=== PATIENT | male | born 1995 ===

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

== ENCOUNTER 2017-03-29 06:39 | Emergency (ER) | payer OTHER ==
[2017-03-29 06:39] VITALS: BMI 30.4
== END 2017-03-29 16:41 ==
LOC: H.ER 06:39
DX: F25.0 Schizoaffective disorder, bipolar type (principal); Z91.14 Patient's other noncompliance with medication regimen; F17.210 Nicotine dependence, cigarettes, uncomplicated

== ENCOUNTER 2017-09-20 09:26 | Inpatient (IN) | payer OTHER ==
[2017-09-20 10:11] LABS: BASO # 0.1 K/uL (0.0-0.2); BASO % 0.5 % (0.0-2.0); EOS # 0.2 K/uL (0.0-0.7); EOS % 1.1 % (0.0-4.0); HEMOGLOBIN 12.9 g/dL (12.0-18.0); LYMPH # 2.1 K/uL (1.0-4.3); MEAN CELL VOLUME 73.9 fl (80.0-94.0); MEAN CORPUSCULAR HGB CONC 33.8 g/dL (33.0-37.0); MEAN PLATELET VOLUME 8.1 fl (7.2-11.7); MONO # 0.8 K/uL (0.0-0.8); MONO % 5.6 % (0.0-10.0); NEUT # 10.8 K/uL (1.8-7.0); NEUT % 77.8 % (50.0-75.0); RBC 5.17 Mil/uL (4.40-5.90); WHITE BLOOD COUNT 13.8 K/uL (4.8-10.8)
[2017-09-20 10:21] LABS: ALBUMIN 4.1 g/dL (3.5-5.0); ALT/SGPT 39 U/L (21-72); AST/SGOT 23 U/L (17-59); BLOOD UREA NITROGEN 12 mg/dl (9-20); CALCIUM 9.3 mg/dL (8.4-10.2); GFR AFRICAN-AMERICAN > 60; GFR NON-AFRICAN AMERICAN > 60
--- NOTE | 2017-09-20 10:39 | ED PDOC ---
HPI: Psych/Substance Abuse Time Seen by Provider: 09/20/17 09:30 Chief Complaint (Nursing): Psychiatric Evaluation Chief Complaint (Provider): crisis evaluation ED Caveat: Psychotic History Per: Patient, Family History/Exam Limitations: clinical condition Onset/Duration Of Symptoms: Gradual Current Symptoms Are (Timing): Still Present Suicide/Self Injury Attempted (Context): None Modifying Factor(s): None Severity: Severe Associated Symptoms: Agitation, Paranoia Involuntary Hold By: Emergency Physician Additional History Per: Prior Records Additional Complaint(s): 22yo male hx bipolar arrives w/ EMS/police grandmother called when patient has been speaking to himself, not sleeping, not taking his meds. Patient is internally preoccupied and not offering much other history. States "I feel alright but the devil speaks from my mouth" Past Medical History Reviewed: Historical Data, Nursing Documentation, Vital Signs Vital Signs: Last Vital Signs Temp 97 F L 09/20/17 09:31 Pulse 122 H 09/20/17 09:31 Resp 18 09/20/17 09:31 BP 156/97 H 09/20/17 09:31 Pulse Ox 100 09/20/17 09:31 - Medical History PMH: Anxiety, Depression Denies: Diabetes, Hepatitis, HIV, HTN, Chronic Kidney Disease, Seizures, Sexually Transmitted Disease - Family History Family History: States: Unknown Family Hx - Living Arrangements Living Arrangements: With Family - Social History Current smoker - smoking cessation education provided: No - Immunization History Hx Tetanus Toxoid Vaccination: No Hx Influenza Vaccination: No Hx Pneumococcal Vaccination: No - Home Medications Home Medications: Ambulatory Orders Medication Instructions Recorded Divalproex [Sd LESLIE(*BID*)] 750 mg PO BID 30 Days #180 tcp 04/06/17 Zolpidem [Ambien] 10 mg PO HS 09/20/17 - Allergies Allergies/Adverse Reactions: Allergies Allergy/AdvReac Type Severity Reaction Status Date / Time aspirin Allergy SWELLING Verified 09/20/17 09:31 ibuprofen [From Motrin] Allergy SWELLING Verified 09/20/17 09:31 Review of Systems Review Of Systems: ROS cannot be obtained secondary to pt's inabilty to answer questions. (limited due to clinical condition) Constitutional: Negative for: Fever, Chills Cardiovascular: Negative for: Chest Pain, Palpitations Gastrointestinal: Negative for: Vomiting Skin: Negative for: Rash, Lesions Neurological: Negative for: Weakness Psych: Positive for: Psychosis Physical Exam - Reviewed Nursing Documentation Reviewed: Yes Vital Signs Reviewed: Yes - Physical Exam Appears: Positive for: Non-toxic (poor eye contact pressured speech, tangential) , No Acute Distress Head Exam: Positive for: ATRAUMATIC, NORMAL INSPECTION, NORMOCEPHALIC Skin: Positive for: Normal Color, Warm, DRY Eye Exam: Positive for: EOMI, Normal appearance, PERRL ENT: Positive for: Normal ENT Inspection Neck: Positive for: Normal, Painless ROM Cardiovascular/Chest: Positive for: Regular Rate, Rhythm Respiratory: Positive for: CNT, Normal Breath Sounds Gastrointestinal/Abdominal: Positive for: Normal Exam, Bowel Sounds, Soft Back: Positive for: Normal Inspection Extremity: Positive for: Normal ROM Neurologic/Psych: Positive for: Alert, Oriented, Mood/Affect (labile, poor insight). Negative for: Motor/Sensory Deficits, Facial Droop - Laboratory Results Result Diagrams: 09/20/17 10:01 09/20/17 10:01 - ECG ECG: Positive for: Interpreted By Me ECG Rhythm: Positive for: Normal QRS, Sinus Rhythm, Nonspecific Changes Interpretation Of ECG: R axis Rate: 94 O2 Sat by Pulse Oximetry: 100 Pulse Ox Interpretation: Normal Medical Decision Making Medical Decision Making: workup for acute psychiatric condition initiated tachycardic in triage but HR improved vehicle delivery worker at bedside 1030a Ativan 1mg IM ordered for anxiolysis and relief of mild agitation EKG obtained 1:1 maintained labs reviewed medically stable for psychiatric admission at time of eval pt requested home medications be given. Disposition - Clinical Impression Clinical Impression: Schizoaffective disorder, bipolar type - Patient ED Disposition Is Patient to be Admitted: Yes - Disposition Disposition Time: 11:01 Condition: STABLE - Pt Status Changed To: Hospital Disposition Of: Inpatient - Admit Certification Admit to Inpatient:: After my assessment, the patient will require hospitalization for at least two midnights. This is because of the severity of symptoms shown, intensity of services needed, and/or the medical risk in this patient being treated as an outpatient. - POA Present On Arrival: None
[2017-09-20 12:39] VITALS: BMI 26.6
--- NOTE | 2017-09-20 12:46 | RAD ---
HISTORY: Evaluate for infiltrate COMPARISON: 03/29/2027. FINDINGS: LUNGS: The lungs are well inflated and clear. PLEURA: No significant pleural effusion identified, no pneumothorax apparent. CARDIOVASCULAR: Normal. OSSEOUS STRUCTURES: No significant abnormalities. VISUALIZED UPPER ABDOMEN: Normal. OTHER FINDINGS: None. IMPRESSION: No active pulmonary disease.
[2017-09-20] MEDS ORDERED: Alum-Mag Hydrox-Simethicone Susp (30 mL) PO PRN (13:45)
[2017-09-20] MEDS ORDERED: Magnesium Hydroxide Susp 30 ml UD PO PRN (13:45)
[2017-09-20] MEDS ORDERED: DiphenhydrAMINE 50 mg/ml Inj IM PRN (13:45)
--- NOTE | 2017-09-20 15:10 | PCM.BM ---
<Zuri Cooney - Last Filed: 09/20/17 15:18> Treatment Plan Problems - Problems identified on initial assessmt Medication nonadherence Date Initiated: 09/20/17 Time Initiated: 15:18 Assessment reference: NA Status: Active Treatment assets and liabiliti Patient Assests: self-reliant, ADL independent, physically healthy, good support system, good past tx response Patient Liabilities: financial problems, relationship conflicts - Milieu Protocol Maintain good personal hygiene: daily Encourage regular showers, daily Remind patient to perform daily oral care, daily Assist patient to perform ADL's Conduct patient checks and document Observation sheet: Q15 minutes Maintain personal safety: every shift Educate patient to report safety concerns to staff, every shift Monitor environment for contraband/sharps Medication safety: Monitor for expected outcome, potential side effects: every shift, Assess barriers to learning: every shift, Assess readiness for medication education: every shift <Aurelio Odom - Last Filed: 09/21/17 11:48> Family Contact Family involvement: Family/SO is involved Family contact: Patient declines to allow family contact at present Family contact name: Miesha Tinoco (grandmother/POA [phone]) Family contacted how many times per week?: 3 - Goals for Treatment Patient goals for treatment: Pt offered no goals. Pt fixated on discharge. Discharge/Continuing Care - Education Needs Education Needs: Family Medication, Family Diagnosis/Disease Process, Family Coping Skills, Family Anger Management skills, Family Personal Hygiene/Grooming , Family Aftercare Safety Plan, Patient Medication, Patient Diagnosis/Disease Process, Patient Coping Skills, Patient Anger Management skills, Patient Personal Hygiene/Grooming, Patient Aftercare Safety Plan - Discharge Discharge Criteria: Tolerates medication w/o severe side effects, Free of paranoid thoughts, Free of agitation, Normal sleep pattern, Ability to care for self, Reduction of target symptoms Discharge to:: Home, With Family - Additional Comments 09/21/17 11:50 Pt reported he was tired and wanted to leave the hospital as soon as possible. Pt denied noncompliance with medication, yet appeared internally preoccupied. - Treatment Team Participation Discussed with Family/SO: No Was Patient/Family/SO present at Treatment Team Meeting: Yes <Noemi Dodson - Last Filed: 09/26/17 13:25> - Diagnosis (1) Psychosis Status: Acute Interventions: pharmacotherapy, psychotherapy 04/02/18 14:28 <Tricia Sarkar - Last Filed: 09/28/17 16:17> Treatment assets and liabiliti Patient Assests: cooperative, ADL independent, physically healthy, good support system, negotiates basic needs, cognitively intact (limited) Patient Liabilities: other (poor insight into illness and need for tx) Family Contact Family involvement: Family/SO is involved Family contact: Family has been contacted by patient, Telephone contact initiated by staff Family contact comment: Certified Bench Jeweler Technician placed call to pts grandmother/POA (Miesha [phone]) to discuss results of [facility] screening and pts progress on 3NP. Voicemail is full at this time. Certified Bench Jeweler Technician unable to leave voicemail. Certified Bench Jeweler Technician will attempt call at later time. - Outside Agency Agency 2 Care involvment: Other Agency contact name: [facility] Agency contact number: [phone] - Goals for Treatment Patient goals for treatment: Patient to continue stabilization on 3NP through medication management and group/supportive therapy. Patient to be encouraged to attend groups regularly to promote self-awareness,compliance, reality testing and improve insight, coping skills and self-esteem. Patient to be provided with referral for appropriate level of aftercare to reduce risk of future hospitalizations and ensure safety in the community. Discharge/Continuing Care - Treatment Team Participation Patient/Family/SO Statement: 09/28/17 16:16 Pt brought into tx team this morning and was able to better engage in discussion regarding progress on 3NP. Pt. reports improvement in mood since admission but was unable to elaborate. Pt. remains internally preoccupied but to a lesser degree than upon admission and is observed responding to internal stimuli less in recent days. Pt. has shown decrease in paranoia since admission. Pt. more easily engaged and is more consistently compliant with medication. Pt. remains discharge focused and ambivalent regarding aftercare but is more receptive to feedback. No harmful behaviors noted. Discussed with Family/SO: No Was Patient/Family/SO present at Treatment Team Meeting: Yes
--- NOTE | 2017-09-20 15:19 | PCM.PSYCH ---
Initial Psychiatric Evaluation - Initial Psychiatric Evaluation Type of Admission: Voluntary Legal Status: Capacity Chief Complaint (in patient's own words): I do not know why I am here Patient's Reaction to Hospitalization: pt signed in by ROZ History of Present Illness and Precipitating Events: PT with history of schizoaffective disorder, non compliant with medications or follow up, reportedaly became increasingly disorganized, poor sleep, pacing all night , irritable, verbally abusive towards grand mother, observed internally preoccupied, talking to self, was brought to ER by grandmother pt presenting with angry irritable affect disorganized thought process observed responding to internal stimuli, not attending to personal hygiene denied suicidal or homicidal ideations, denied command hallucinations Current Medications: Active Medications Generic Name Dose Route Start Last Admin Trade Name Freq PRN Reason Stop Dose Admin Acetaminophen 650 mg 09/20/17 13:45 Tylenol 325mg Tab PO Q4 PRN Pain, moderate (4-7) Al Hydrox/Mg Hydrox/Simethicone 30 ml 09/20/17 13:45 Maalox Plus 30 Ml PO Q4 PRN Dyspepsia Benztropine Mesylate 0.5 mg 09/20/17 22:00 Cogentin PO HS SARAVANAN Diphenhydramine HCl 50 mg 09/20/17 13:45 Benadryl IM Q6 PRN Extrapyramidal S/S Unable PO Diphenhydramine HCl 50 mg 09/20/17 13:45 09/20/17 14:23 Benadryl PO 50 mg Q6 PRN Administration Extrapyramidal Symptoms Divalproex Sodium 500 mg 09/20/17 17:00 Sd Bains(*Bid*) PO BID SARAVANAN Haloperidol 5 mg 09/20/17 13:45 09/20/17 14:23 Haldol PO 5 mg Q4 PRN Administration Agitation Haloperidol Lactate 5 mg 09/20/17 13:45 Haldol IM Q4 PRN Agitation, Unable to Take PO Lorazepam 2 mg 09/20/17 13:45 Ativan IM Q4 PRN Anxiety/Agitation,Unable PO Lorazepam 2 mg 09/20/17 13:45 09/20/17 14:23 Ativan PO 2 mg Q4 PRN Administration Anxiety/Agitation Magnesium Hydroxide 30 ml 09/20/17 13:45 Milk Of Magnesia PO HS PRN Constipation Risperidone 2 mg 09/20/17 22:00 Risperdal M-Tab PO HS [facility] Risperidone 2 mg 09/21/17 09:00 Risperdal M-Tab PO DAILY SARAVANAN Past Psychiatric History - Past Psychiatric History Explanation of prior treatment: multiple inpatient hospitalizations hx of non compliance History of ETOH/Drug Use: hx of cannabis use Pertinent Medical Hx (Current Medical&Sleep Prob, Allergies): Allergies Allergy/AdvReac Type Severity Reaction Status Date / Time aspirin Allergy SWELLING Verified 09/20/17 09:31 ibuprofen [From Motrin] Allergy SWELLING Verified 09/20/17 09:31 Divalproex [Depakote DR(*BID*)] 750 mg PO BID 30 Days #180 tcp 04/06/17 Zolpidem [Ambien] 10 mg PO HS 09/20/17 Mental Status Examination - Personal Presentation Personal Presentation: Looks stated age Additional comments: unkempt un cooperative - Affect Affect: Constricted - Motor Activity Motor Activity: Psychomotor Agitation - Reliability in Providing Information Reliability in Providing Information: Poor, due to alteration in thoughts, Poor , due to altered mood - Speech Speech: Disorganized, Irrelevant - Mood Mood: Anxious - Formal Thought Process Formal Thought Process: Hallucinations, Delusions, Paranoia, Loosening of associations - Hallucinations/Delusions Additional comments: pt internally preoccupied, denied command hallucinatios - Obsessions/Compulsions Obsessions: No Compulsions: No - Cognitive Functions Orientation: Person Attention/Concentration: Easily distracted Judgement: Imparied, as evidence by: Poor judgement, Imparied, as evidence by: Lack of insight into illness - Risk Risk: Diminished functioning - Strength & Assets Inventory Strength & Assets Inventory: Family support - Limitations Additional comments: poor compliance DSM 5 DX - DSM 5 DSM 5 Diagnosis: schizoaffective disorder bipolar - Recommended/Plan of Treatment Treatment Recommendations and Plan of Treatment: depakote 500mg bid risperdal 2mg bid monitor for psychopharmacological effects and side effect profile
--- NOTE | 2017-09-20 18:28 | CARD ---
APPROVED REPORT EKG Measurement Heart [id number] <Conclusion> Normal sinus rhythm Rightward axis Borderline ECG
[2017-09-20] MEDS: Risperidone M TAB 2 MG PO SCH (21:22)
[2017-09-20] MEDS: Divalproex 500 mg DR(BID formulation) PO SCH (21:22)
[2017-09-21] MEDS: Divalproex 500 mg DR(BID formulation) PO SCH ×2 (10:11→18:34)
[2017-09-21] MEDS: Risperidone M TAB 2 MG PO SCH ×2 (10:11→21:19)
--- NOTE | 2017-09-21 14:41 | PCM.PYCHPN ---
Psychiatric Progress Note - Psychiatric Progress Note Patient seen today, length of contact: PT EVALUATED DISCUSSED WITH TEAM CHART REVIEWED Patient Chief Complaint: I need to go home Problems Identified/Issues Discussed: pt evaluated with treatment team, disheveled , unkempt, irritable, angry mood and affect, requesting to be discharged, pt internally preoccupied, responding to internal stimuli, verbally abusive towards other pts and presenting with persecutory delusions towards grandmother and staff members, limited insight into illness pt denied command hallucinations, denied suicidal or homicidal ideations Medical Problems: multiple inpatient hospitalizations hx of non compliance DSM 5 Symptoms Update: schizoaffective disorder bipolar Medication Change: No Medical Record Reviewed: Yes Mental Status Examination - Cognitive Function Orientation: Person Attention: Poor Concentration: Poor Association: Loose Fund of Knowledge: Poor Decription of patient's judgement and insights: impaired insight , poor judgment - Mood Mood: Anxious - Affect Affect: Constricted - Speech Speech: Loud - Formal Thought Process Formal Thought Process: Hallucinations, Delusions, Paranoia, Loosening of associations Psychotic Thoughts and Behaviors: pt internally preoccupied , denied command halluciantions - Suicidal Ideation Suicidal Ideation: No - Homicidal Ideation Homicidal Ideation: No Goal/Treatment Plan - Goal/Treatment Plan Need for Continued Stay: Remain at risks for inpatient hospitalization, Discharge may exacerbated symptoms, Severe functional impairment Progress Toward Problem(s) and Goals/Treatment Plan: depakote 500mg bid risperdal 2mg bid with plan to uptitrate monitor for psychopharmacological effects and side effect profile
[2017-09-22] MEDS: Risperidone M TAB 2 MG PO SCH ×2 (17:32→21:24)
[2017-09-22] MEDS: Divalproex 500 mg DR(BID formulation) PO SCH (17:32)
--- NOTE | 2017-09-22 19:51 | PCM.PYCHPN ---
Psychiatric Progress Note - Psychiatric Progress Note Patient seen today, length of contact: PT EVALUATED DISCUSSED WITH TEAM CHART REVIEWED Patient Chief Complaint: grandmother called ems because she was trying to tell me what to do Problems Identified/Issues Discussed: alteration in mood alteration in cognition alteration in coping Medical Problems: per chart Diagnostic Results: per psychiatry per medicine per nursing per social work DSM 5 Symptoms Update: somewhat less labile Medication Change: No Medical Record Reviewed: Yes Consults ordered or reviewed: hosptialist following pt Mental Status Examination - Cognitive Function Orientation: Person Attention: Poor Concentration: Poor Association: Loose Fund of Knowledge: Poor Decription of patient's judgement and insights: poor - Mood Mood: Anxious - Affect Affect: Constricted - Speech Speech: Loud - Formal Thought Process Formal Thought Process: Hallucinations, Delusions, Paranoia, Loosening of associations - Suicidal Ideation Suicidal Ideation: No - Homicidal Ideation Homicidal Ideation: No Goal/Treatment Plan - Goal/Treatment Plan Need for Continued Stay: Remain at risks for inpatient hospitalization, Discharge may exacerbated symptoms, Severe functional impairment Progress Toward Problem(s) and Goals/Treatment Plan: inpt milieu vital signs and clinical observation per protocol and per status adjust meds per status discharge plan planning in progress Estimated Date of D/C: 09/27/17 - Smoking Cessation Smoking Cessation Initiated: No Reason for not providing: defers
[2017-09-23] MEDS: Divalproex 500 mg DR(BID formulation) PO SCH ×2 (11:29→21:08)
[2017-09-23] MEDS: Risperidone M TAB 2 MG PO SCH ×2 (11:29→21:08)
--- NOTE | 2017-09-23 17:12 | PCM.PYCHPN ---
Psychiatric Progress Note - Psychiatric Progress Note Patient seen today, length of contact: PT EVALUATED DISCUSSED WITH TEAM CHART REVIEWED Patient Chief Complaint: pt has been isolative at times refusing medication, redirection requires to eat and adls grandmother called ems because she was trying to tell me what to do Problems Identified/Issues Discussed: alteration in mood alteration in cognition alteration in coping Medical Problems: per chart Diagnostic Results: per psychiatry per medicine per nursing per social work DSM 5 Symptoms Update: alteration in mood mood and cognition Medication Change: No Medical Record Reviewed: Yes Consults ordered or reviewed: pt seen by hospitalist Mental Status Examination - Cognitive Function Orientation: Person Attention: Poor Concentration: Poor Association: Loose Fund of Knowledge: Poor Decription of patient's judgement and insights: poor - Mood Mood: Anxious - Affect Affect: Constricted - Speech Speech: Loud - Formal Thought Process Formal Thought Process: Hallucinations, Delusions, Paranoia, Loosening of associations - Suicidal Ideation Suicidal Ideation: No - Homicidal Ideation Homicidal Ideation: No Goal/Treatment Plan - Goal/Treatment Plan Need for Continued Stay: Remain at risks for inpatient hospitalization, Discharge may exacerbated symptoms, Severe functional impairment Progress Toward Problem(s) and Goals/Treatment Plan: inpt milieu vital signs and clinical observation per protocol and per status adjust meds per status discharge plan planning in progress Estimated Date of D/C: 09/27/17 - Smoking Cessation Smoking Cessation Initiated: No Reason for not providing: pt defers
[2017-09-24 01:21] LABS: SQUAMOUS EPITHIAL < 1 /hpf (0-5); URINE BILIRUBIN NEGATIVE (NEGATIVE); URINE BLOOD NEGATIVE (NEGATIVE); URINE CLARITY SLIGHTY-CLOUDY (Clear); URINE COLOR YELLOW (YELLOW); URINE GLUCOSE (UA) NEG (Normal); URINE LEUKOCYTE ESTERASE NEG Leu/uL (Negative); URINE PROTEIN NEGATIVE (NEGATIVE)
[2017-09-24 01:38] LABS: BARBITURATES, UR NEGATIVE (NEGATIVE); BENZODIAZEPINES, UR NEGATIVE (NEGATIVE); OPIATES, UR NEGATIVE (NEGATIVE); PHENCYCLIDINE, UR NEGATIVE (NEGATIVE)
[2017-09-24] MEDS: Divalproex 500 mg DR(BID formulation) PO SCH ×2 (13:27→17:04)
[2017-09-24] MEDS: Risperidone M TAB 2 MG PO SCH (13:27)
--- NOTE | 2017-09-24 14:44 | PCM.PYCHPN ---
Psychiatric Progress Note - Psychiatric Progress Note Patient seen today, length of contact: PT EVALUATED DISCUSSED WITH TEAM CHART REVIEWED Patient Chief Complaint: I need to get out of here Problems Identified/Issues Discussed: pt evaluated , angry, irritable, requesting to be discharged, pt signed 48 hours notice requesting to be released, pt has not been compliant with medications the past two days, showing no insight into illness and stating he does not need medications, and would only take them so he can be discharged pt pacing in the hallways., labile affect, internally preoccupied, observed responding to internal stimuli pt denied command hallucinations, denied suicidal or homicidal ideations Medical Problems: multiple inpatient hospitalizations hx of non compliance DSM 5 Symptoms Update: schizoaffective disorder bipolar cannabis use disorder Medication Change: Yes (increase risperidone) Medical Record Reviewed: Yes Mental Status Examination - Cognitive Function Orientation: Person Attention: Poor Concentration: Poor Association: Loose Fund of Knowledge: Poor - Mood Mood: Anxious - Affect Affect: Constricted - Speech Speech: Loud - Formal Thought Process Formal Thought Process: Hallucinations, Delusions, Paranoia, Loosening of associations Psychotic Thoughts and Behaviors: pt internally preoccupied, denied command hallucinations - Suicidal Ideation Suicidal Ideation: No - Homicidal Ideation Homicidal Ideation: No Goal/Treatment Plan - Goal/Treatment Plan Need for Continued Stay: Remain at risks for inpatient hospitalization, Discharge may exacerbated symptoms, Severe functional impairment Progress Toward Problem(s) and Goals/Treatment Plan: depakote 500mg bid risperdal increase 3mg bid pt signed 48 hour notice requesting discharge, pt will be referred for screening for involuntary admission for higher level of care and further medication stabilization monitor for psychopharmacological effects and side effect profile Estimated Date of D/C: 09/27/17
[2017-09-24] MEDS: Risperidone M tab 1 MG PO SCH (21:16)
[2017-09-25] MEDS: Divalproex 500 mg DR(BID formulation) PO SCH (09:27)
[2017-09-25] MEDS: Risperidone M tab 1 MG PO SCH ×2 (09:28→21:26)
[2017-09-25] MEDS ORDERED: risperiDONE Consta 37.5 mg/2 ml Syr IM ONE (15:00)
--- NOTE | 2017-09-25 16:08 | PCM.PYCHPN ---
Psychiatric Progress Note - Psychiatric Progress Note Patient seen today, length of contact: PT EVALUATED DISCUSSED WITH TEAM CHART REVIEWED Patient Chief Complaint: I want to leave and I do not want to take injections any more Problems Identified/Issues Discussed: pt evaluated , angry, irritable, requesting to be discharged,pt selective in taking medications shows no insight into illness, refusing to be started on IM injections for compliance ensurance, pt also has been missing his injections appointments on the outpatient pt demanding to leave, pacing on the unit observed talking to self and responding to internal stimuli pt denied command hallucinations, denied suicidal or homicidal ideations Medical Problems: multiple inpatient hospitalizations hx of non compliance DSM 5 Symptoms Update: schizoaffective bipolar Medication Change: Yes (risperidone consta 37.5mg) Medical Record Reviewed: Yes Mental Status Examination - Cognitive Function Orientation: Person Attention: Poor Concentration: Poor Association: Loose Fund of Knowledge: Poor - Mood Mood: Anxious - Affect Affect: Constricted - Speech Speech: Loud - Formal Thought Process Formal Thought Process: Hallucinations, Delusions, Paranoia, Loosening of associations Psychotic Thoughts and Behaviors: pt internally preoccupied, denied command hallucinations - Suicidal Ideation Suicidal Ideation: No - Homicidal Ideation Homicidal Ideation: No Goal/Treatment Plan - Goal/Treatment Plan Need for Continued Stay: Remain at risks for inpatient hospitalization, Discharge may exacerbated symptoms, Severe functional impairment Progress Toward Problem(s) and Goals/Treatment Plan: depakote 500mg daily and 750mg qhs risperdal 3mg bid encourage medication compliance , pt will be referred for screening for involuntary admission for higher level of care and further medication stabilization monitor for psychopharmacological effects and side effect profile Estimated Date of D/C: 10/01/17
[2017-09-25] MEDS: Divalproex 250 mg DR(BID formulation) PO SCH (21:27)
[2017-09-26] MEDS: Divalproex 500 mg DR(BID formulation) PO SCH (12:48)
[2017-09-26] MEDS: Risperidone M tab 1 MG PO SCH ×2 (12:49→21:13)
--- NOTE | 2017-09-26 13:40 | PCM.PYCHPN ---
Psychiatric Progress Note - Psychiatric Progress Note Patient seen today, length of contact: PT EVALUATED DISCUSSED WITH TEAM CHART REVIEWED Patient Chief Complaint: I want to eat Edmond Ruth I do not like food here Problems Identified/Issues Discussed: pt evaluated , continues to be responding to internal stimuli , observed talking to self , continues to present with delusions of persecution, stating it is all his grandmother's fault that he is in the hospital and that she is plotting plans this with the police against him pt has no insight into illness continues to need a lot of encouragement to take his medicine, observed pacing in the hallway, refusing to attend groups pt requesting to smoke, refusing the nicotine patch , pt showing limited insight into the effect of cannabis on his mental health he denies command hallucinations, denied suicidal or homicidal ideations pt requesting to be discharged and to sign anothe [id number] notice Medical Problems: multiple inpatient hospitalizations hx of non compliance 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 cannabis use disorder Medication Change: Yes (started on risperidone IM for compliance) Medical Record Reviewed: Yes Mental Status Examination - Cognitive Function Orientation: Person Attention: Poor Concentration: Poor Association: Loose Fund of Knowledge: Poor - Mood Mood: Anxious - Affect Affect: Constricted - Speech Speech: Loud - Formal Thought Process Formal Thought Process: Hallucinations, Delusions, Paranoia, Loosening of associations Psychotic Thoughts and Behaviors: pt internally preoccupied, denied command hallucinations - Suicidal Ideation Suicidal Ideation: No - Homicidal Ideation Homicidal Ideation: No Goal/Treatment Plan - Goal/Treatment Plan Need for Continued Stay: Remain at risks for inpatient hospitalization, Discharge may exacerbated symptoms, Severe functional impairment Progress Toward Problem(s) and Goals/Treatment Plan: depakote 500mg daily and 750mg qhs, will follow up on depakote level tomorrow AM with plan to uptitrate gradually risperdal increased to 3mg bid , risperidone consta IM 37.5mg given yesterday with paln to be increased to 50mg in two weeks encourage medication compliance , pt referred for screening for involuntary admission for higher level of care and further medication stabilization, yet declined monitor for psychopharmacological effects and side effect profile Estimated Date of D/C: 10/01/17
[2017-09-26] MEDS: Divalproex 250 mg DR(BID formulation) PO SCH (21:13)
[2017-09-27] MEDS: Risperidone M tab 1 MG PO SCH ×2 (09:12→21:01)
[2017-09-27] MEDS: Divalproex 500 mg DR(BID formulation) PO SCH (09:13)
--- NOTE | 2017-09-27 12:25 | PCM.PYCHPN ---
Psychiatric Progress Note - Psychiatric Progress Note Patient seen today, length of contact: PT EVALUATED DISCUSSED WITH TEAM CHART REVIEWED Patient Chief Complaint: I need to get out, I want to smoke Problems Identified/Issues Discussed: pt evaluated , continues to request discharge, showing no insight into his illness, staff report indicated that pt had to receive PRN haldol and ativan last night as he insisted on being discharged and was argumentative about taking his medications pt continues to be isolative, not attending groups and not interacting with other peers, pacing and responding to internal stimuli discussed with pt importance of compliance with medications to be discharged , and to stay out of hospital pt denied any current suicdal or homicidal ideations, denied command hallucinations Medical Problems: multiple inpatient hospitalizations hx of non compliance 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 Medication Change: No Medical Record Reviewed: Yes Mental Status Examination - Cognitive Function Orientation: Person Attention: Poor Concentration: Poor Association: Loose Fund of Knowledge: Poor - Mood Mood: Anxious - Affect Affect: Constricted - Speech Speech: Loud - Formal Thought Process Formal Thought Process: Hallucinations, Delusions, Paranoia, Loosening of associations Psychotic Thoughts and Behaviors: pt internally preoccupied, denied command hallucinations - Suicidal Ideation Suicidal Ideation: No - Homicidal Ideation Homicidal Ideation: No Goal/Treatment Plan - Goal/Treatment Plan Need for Continued Stay: Remain at risks for inpatient hospitalization, Discharge may exacerbated symptoms, Severe functional impairment Progress Toward Problem(s) and Goals/Treatment Plan: depakote 500mg daily and 750mg qhs, will follow up on depakote level tomorrow AM with plan to uptitrate gradually risperdal 3mg bid , risperidone consta IM 37.5mg given 09/25/17 with paln to be increased to 50mg in two weeks encourage medication compliance , monitor for psychopharmacological effects and side effect profile Estimated Date of D/C: 10/01/17
[2017-09-27 13:33] VITALS: O2SAT 100
[2017-09-27] MEDS: Divalproex 250 mg DR(BID formulation) PO SCH (21:01)
[2017-09-28] MEDS: Risperidone M tab 1 MG PO SCH ×2 (10:04→21:02)
[2017-09-28] MEDS: Divalproex 500 mg DR(BID formulation) PO SCH (10:04)
--- NOTE | 2017-09-28 16:15 | PCM.PYCHPN ---
Psychiatric Progress Note - Psychiatric Progress Note Patient seen today, length of contact: PT EVALUATED DISCUSSED WITH TEAM CHART REVIEWED Patient Chief Complaint: I will take my medicine to go home Problems Identified/Issues Discussed: pt evaluated , with treatment team, pt calmer, more compliant with treatment, presenting with less disorganized thought process encouraged pt to attaend groups and participate in treatment, no reported changes in sleep or appetite no reported side effects of medications, depakote level noted 84 pt denied any current suicidal or homicidal ideations, denied command hallucinations Medical Problems: multiple inpatient hospitalizations hx of non compliance 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 Medication Change: No Medical Record Reviewed: Yes Mental Status Examination - Cognitive Function Orientation: Person Attention: Poor Concentration: Poor Association: Loose Fund of Knowledge: Poor - Mood Mood: Anxious - Affect Affect: Constricted - Speech Speech: Loud - Formal Thought Process Formal Thought Process: Delusions, Paranoia, Loosening of associations Psychotic Thoughts and Behaviors: ptappears less internally preoccupied and less disorganized, denied command hallucinations - Suicidal Ideation Suicidal Ideation: No - Homicidal Ideation Homicidal Ideation: No Goal/Treatment Plan - Goal/Treatment Plan Need for Continued Stay: Remain at risks for inpatient hospitalization, Discharge may exacerbated symptoms, Severe functional impairment Progress Toward Problem(s) and Goals/Treatment Plan: depakote 500mg daily and 750mg qhs, depakote level 84 risperdal 3mg bid , risperidone consta IM 37.5mg given 09/25/17 with paln to be increased to 50mg in two weeks encourage medication compliance , monitor for psychopharmacological effects and side effect profile pediatric social worker starting referral to [facility] Estimated Date of D/C: 10/01/17
[2017-09-28] MEDS: Divalproex 250 mg DR(BID formulation) PO SCH (21:02)
--- NOTE | 2017-09-29 09:43 | PCM.PYCHPN ---
Psychiatric Progress Note - Psychiatric Progress Note Patient seen today, length of contact: Patient evaluated, chart reviewed Patient Chief Complaint: "I'm okay." Problems Identified/Issues Discussed: Patient was minimally cooperative with interview, lying in hospital bed w/ eyes closed, giving one word answers. He reports that he feels tired. He denies acute depression/anxiety, but he has constricted affect. No AH/VH/SI/HI/ paranoia. Diagnostic Results: VPA 84.2 Medication Change: No Medical Record Reviewed: Yes Consults ordered or reviewed: Medicine consult Mental Status Examination - Cognitive Function Orientation: Person, Place, Situation Memory: Intact Decription of patient's judgement and insights: Poor I/J - Mood Mood: Neutral - Affect Affect: Blunted - Speech Speech: Appropriate - Formal Thought Process Formal Thought Process: Other (Poverty of speech) Psychotic Thoughts and Behaviors: Patient denies acute AH/VH - Suicidal Ideation Suicidal Ideation: No - Homicidal Ideation Homicidal Ideation: No Goal/Treatment Plan - Goal/Treatment Plan Need for Continued Stay: Remain at risks for inpatient hospitalization, Discharge may exacerbated symptoms, Severe functional impairment Progress Toward Problem(s) and Goals/Treatment Plan: Schizoaffective Disorder -Individual and group therapy -Psychoeducation -Continue Cogentin 0.5 mg PO Qwe, Risperdal 3 mg PO Q12, Depakote 500 mg PO Daily/ 750 mg PO HS (VPA 84.2) -Medicine consult -Disposition planning Estimated Date of D/C: 10/02/17
[2017-09-29] MEDS: Divalproex 500 mg DR(BID formulation) PO SCH (13:20)
[2017-09-29] MEDS: Risperidone M tab 1 MG PO SCH ×2 (13:21→21:09)
[2017-09-29] MEDS: Divalproex 250 mg DR(BID formulation) PO SCH (21:09)
[2017-09-30] MEDS: Divalproex 500 mg DR(BID formulation) PO SCH (10:20)
[2017-09-30] MEDS: Risperidone M tab 1 MG PO SCH ×2 (10:20→21:20)
--- NOTE | 2017-09-30 11:48 | PCM.PYCHPN ---
Psychiatric Progress Note - Psychiatric Progress Note Patient seen today, length of contact: Patient evaluated, chart reviewed Patient Chief Complaint: "I'm okay." Problems Identified/Issues Discussed: Patient is calm, cooperative with interview. He states that his mood is improving. He is more goal oriented and states that he would like to leave the hospital soon. He denies AH/VH/SI/HI/paranoia/delusions. He has broader range of affect and denies feeling acutely depressed/anxious. Diagnostic Results: VPA 84.2 Medication Change: No Medical Record Reviewed: Yes Consults ordered or reviewed: Medicine consult Mental Status Examination - Cognitive Function Orientation: Person, Place, Situation Memory: Intact Attention: WNL Concentration: WNL Association: WNL Fund of Knowledge: [facility] Decription of patient's judgement and insights: Improving I/J - Mood Mood: Neutral - Affect Affect: Constricted - Speech Speech: Appropriate - Formal Thought Process Formal Thought Process: Other (Mild poverty of speech) Psychotic Thoughts and Behaviors: Patient denies acute AH/VH - Suicidal Ideation Suicidal Ideation: No - Homicidal Ideation Homicidal Ideation: No Goal/Treatment Plan - Goal/Treatment Plan Need for Continued Stay: Discharge may exacerbated symptoms Progress Toward Problem(s) and Goals/Treatment Plan: Schizoaffective Disorder -Individual and group therapy -Psychoeducation -Continue Cogentin 0.5 mg PO Q12, Risperdal 3 mg PO Q12, Depakote 500 mg PO Daily/ 750 mg PO HS (VPA 84.2) -Medicine consult -Disposition planning Estimated Date of D/C: 10/02/17
[2017-09-30] MEDS: Divalproex 250 mg DR(BID formulation) PO SCH (21:20)
[2017-10-01] MEDS: Risperidone M tab 1 MG PO SCH ×2 (08:55→21:08)
[2017-10-01] MEDS: Divalproex 500 mg DR(BID formulation) PO SCH (08:55)
--- NOTE | 2017-10-01 16:08 | PCM.PYCHPN ---
Psychiatric Progress Note - Psychiatric Progress Note Patient seen today, length of contact: Patient evaluated, chart reviewed Patient Chief Complaint: I want to go home Problems Identified/Issues Discussed: pt evaluated , appeaRS calmer, more compliant with treatment, presenting with less disorganized thought process , no reported changes in sleep or appetite no reported side effects of medications, pt denied any current suicidal or homicidal ideations, denied command hallucinations Medical Problems: multiple inpatient hospitalizations hx of non compliance DSM 5 Symptoms Update: SCHIZOAFFECTIVE DISORDER BIPOLAR Medication Change: No Medical Record Reviewed: Yes Mental Status Examination - Cognitive Function Orientation: Person, Place, Situation Memory: Intact Attention: WNL Concentration: WNL Association: [facility] Fund of Knowledge: [facility] - Mood Mood: Neutral - Affect Affect: Constricted - Speech Speech: Appropriate - Formal Thought Process Formal Thought Process: Circumstantial, Other (Mild poverty of speech) Psychotic Thoughts and Behaviors: PT PRESENTING WITH CLEARING OFF OF THE AUDITORY HALLUCINATIONS, DENIED ANY COMMAND HALLUCINATIONS - Suicidal Ideation Suicidal Ideation: No - Homicidal Ideation Homicidal Ideation: No Goal/Treatment Plan - Goal/Treatment Plan Need for Continued Stay: Discharge may exacerbated symptoms Progress Toward Problem(s) and Goals/Treatment Plan: depakote 500mg daily and 750mg qhs, depakote level 84 risperdal 3mg bid , risperidone consta IM 37.5mg given 09/25/17 with paln to be increased to 50mg in two weeks encourage medication compliance , monitor for psychopharmacological effects and side effect profile social welfare clerk starting referral to [facility] Estimated Date of D/C: 10/03/17
[2017-10-01] MEDS: Divalproex 250 mg DR(BID formulation) PO SCH (21:08)
[2017-10-02] MEDS: Divalproex 500 mg DR(BID formulation) PO SCH (08:54)
[2017-10-02] MEDS: Risperidone M tab 1 MG PO SCH (08:55)
[2017-10-02 09:12] VITALS: BP 123/71; PULSE 79; RESP 18; TEMP 97.3
--- NOTE | 2017-10-02 14:41 | PCM.PYCHDC ---
Mental Status Examination - Mental Status Examination Orientation: Person, Place Memory: Intact Mood: Neutral Affect: Broad Speech: Appropriate Attention: WNL Concentration: WNL Association: WNL Fund of Knowledge: WNL Formal Thought Process: Circumstantial Description of patient's judgement and insight: impaired insight , poor judgment Psychotic Thoughts and Behaviors: Ppt on discharge denied psychotic symptoms, non elicited Suicidal Ideation: No Current Homicidal Ideation?: No Discharge Summary - Discharge Note Reason for Hospitalization: pt signed in by ROZ Almaraz with history of schizoaffective disorder, non compliant with medications or follow up, reportedaly became increasingly disorganized, poor sleep, pacing all night , irritable, verbally abusive towards grand mother, observed internally preoccupied, talking to self, was brought to ER by grandmother pt presenting with angry irritable affect disorganized thought process observed responding to internal stimuli, not attending to personal hygiene denied suicidal or homicidal ideations, denied command hallucinations Consultations:: List each consultation separately and include: 1. Reason for request. 2. Findings. 3. Follow-up Summary of Hospital Course include:: 1. Description of specific treatment plan utilized for patients during their course of treatmen. 2. Summarize the time- course for resolution of acute symptoms and/or regressed behaviors. 3. Describe issues identified and worked on during hospitalization. 4. Describe medication utilized. 5. Describe medical problems identified and treated. 6. Reassessment of suicide risk Summary of Hospital Course: PT on admission was isolative guarded , paranoid, refusing medications, pt was referred for involuntary admission but not accepted pt needed a lot of encouragement for medication compliance he was started on risperidone which was uptitrated to 3mg bid and pt was placed on risperidone consta 37.5mg q 2weeks, last dose was on 09/26/15 next dose due on 10/08/17 pt was placed on depakote 5oomg qal and 750mg qhs, depakote level 89 pt gradually became less disorganized, and more compliant with medications, motivational therapy was provided in reference to cannabis use case was discussed with [facility] case technician on discharge pt denied psychotic symptoms,non were elicited, denied suicidal or homicidal ideations, no reported side effects of medications - Diagnosis (1) Psychosis Current Visit: Yes Status: Acute - Final Diagnosis (DSM 5) Condition upon Discharge: STABLE DSM 5: schizoaffective disorder bipolar type Disposition: HOME/ ROUTINE Follow-up Treatment Plan: depakote 500mg daily and 750mg qhs, depakote level 84 risperdal 3mg bid , risperidone consta IM 37.5mg given 09/25/17 with paln to be increased to 50mg in two weeks encourage medication compliance , monitor for psychopharmacological effects and side effect profile executive secretary social welfare starting referral to [facility] Prescriptions/Medication Reconciliation: Benztropine [Cogentin] 0.5 mg PO BID 30 Days #60 tab Divalproex [Depakote DR(*BID*)] 750 mg PO HS 30 Days #90 tcp Divalproex [Depakote DR(*BID*)] 500 mg PO DAILY 30 Days #30 tcp risperiDONE [RisperDAL Tab] 3 mg PO BID 30 Days #60 tab - Smoking Cessation Smoking Cessation Medication prescribed: No Reason for not providing: pt declined - Antipsychotic Medications Pt discharged on 2 or more routine antipsychotic medications: No
== END 2017-10-02 15:55 | disposition home or self-care (01) | DRG 885 ==
LOC: H.ER 09:26 → H.ERHOLD 12:25 → H.PSYCH 13:25
PROVIDERS: ADMIT Psychiatry & Neurology Psychiatry; ATTEND Psychiatry & Neurology Psychiatry
PROC: GZ51ZZZ Individual Psychotherapy, Behavioral (ICD-10-PCS; 2017-09-20)
PROC: GZHZZZZ Group Psychotherapy (ICD-10-PCS; principal; 2017-09-25)
DX: F25.0 Schizoaffective disorder, bipolar type (principal); Z79.899 Other long term (current) drug therapy; Z91.14 Patient's other noncompliance with medication regimen; Z88.6 Allergy status to analgesic agent; Z91.19 Patient's noncompliance with other medical treatment and regimen; F32.9 Major depressive disorder, single episode, unspecified; F41.9 Anxiety disorder, unspecified; R00.0 Tachycardia, unspecified; F12.90 Cannabis use, unspecified, uncomplicated; F20.1 Disorganized schizophrenia